=== PATIENT | male | born 1970 | race Caucasian/White ===

== ENCOUNTER 2018-10-05 20:24 | Emergency (ER) | payer OTHER ==
[2018-10-05 20:34] VITALS: BP 129/82; PULSE 85; TEMP 97.9; BMI 29.7
[2018-10-05 22:33] LABS: URINE APPEARANCE CLEAR; URINE BILIRUBIN NEGATIVE (NEGATIVE); URINE COLOR YELLOW; URINE GLUCOSE (UA) NEGATIVE (NEGATIVE); URINE KETONE NEGATIVE (NEGATIVE); URINE LEUK ESTERASE NEGATIVE (NEGATIVE); URINE NITRITE NEGATIVE (NEGATIVE); URINE PROTEIN NEGATIVE (NEGATIVE); URINE UROBILINOGEN 0.2 mg/dL (0.2-1.0)
--- NOTE | 2018-10-05 22:34 | PDOC ---
History of Present Illness - General Chief Complaint: Urinary Problem Stated Complaint: PENILE PAIN Time Seen by Provider: 10/05/18 22:06 History Source: Patient - History of Present Illness Initial Comments: 10/05/18 23:01 48-year-old male Complaining of small bruise to the penial shaft patient reports some pulsating feeling when he urinates at the site of the Bruise. Denies dysuria, frequency urination, penile discharge,'s testicular pain.. Past History - Past Medical History Allergies/Adverse Reactions: Allergies Allergy/AdvReac Type Severity Reaction Status Date / Time No Known Allergies Allergy Verified 10/05/18 22:18 Home Medications: Ambulatory Orders NK [No Known Home Medication] 10/05/18 COPD: No - Suicide/Smoking/Psychosocial Hx Smoking History: Never smoked Review of Systems - Review of Systems Able to Perform ROS?: Yes Is the patient limited Syriac proficient: No : Yes: Other (penile pain) *Physical Exam - Vital Signs Last Vital Signs Temp Pulse Resp BP Pulse Ox 97.9 F 85 18 129/82 99 10/05/18 20:32 10/05/18 20:32 10/05/18 20:32 10/05/18 20:32 10/05/18 20:32 - Physical Exam General Appearance: Yes: Appropriately Dressed Male Genitalia: positive: normal genitalia, other (1 cmsmall hematoma noted at the anterior shaft of penis.No redness to the meatus noted). negative: testicular tenderness Integumentary: positive: Normal Color, Dry, Warm Neurologic: positive: Fully Oriented, Alert, Normal Mood/Affect *DC/Admit/Observation/Transfer Diagnosis at time of Disposition: Penis abrasion Qualifiers: Encounter type: initial encounter Qualified Code(s): S30.812A - Abrasion of penis, initial encounter - Discharge Dispostion Disposition: HOME - Referrals - Patient Instructions Printed Discharge Instructions: DI for Hematoma (Bruise) Additional Instructions: you may apply ice to the area follow up with your doctor as soon as possible. - Post Discharge Activity Forms/Work/School Notes: Back to Work
== END 2018-10-05 23:11 | disposition home or self-care (01) ==
LOC: JERFT 20:24
DX: S30.21XA Contusion of penis, initial encounter (principal); S30.812A Abrasion of penis, initial encounter; X58.XXXA Exposure to other specified factors, initial encounter; Y93.9 Activity, unspecified; Y92.89 Other specified places as the place of occurrence of the external cause; Y99.8 Other external cause status
CPT/HCPCS: 36415; 81003; 87086; 87491; 87591; 99281-25

== ENCOUNTER 2023-11-22 20:30 | Emergency (ER) | payer OTHER ==
[2023-11-22 20:46] VITALS: BP 146/86; PULSE 98; RESP 19; TEMP 99; BMI 29.4
[2023-11-22 21:55] LABS: EPI CELLS 5 /uL (0-25.1); HYALINE CASTS 0 /uL (0-3.1); URINE APPEARANCE CLEAR; URINE BACTERIA 1 /uL (0-1359); URINE BILIRUBIN NEGATIVE (NEGATIVE); URINE COLOR YELLOW; URINE GLUCOSE (UA) NEGATIVE (NEGATIVE); URINE KETONE TRACE (NEGATIVE); URINE LEUK ESTERASE NEGATIVE (NEGATIVE); URINE NITRITE NEGATIVE (NEGATIVE); URINE PROTEIN TRACE (NEGATIVE); URINE RBC 64 /uL (0-23.9); URINE WBC 7 /uL (0-25.8)
== END 2023-11-22 22:53 | disposition home or self-care (01) ==
LOC: JER 20:30
DX: R33.9 Retention of urine, unspecified (principal); R10.30 Lower abdominal pain, unspecified; R39.11 Hesitancy of micturition; R30.0 Dysuria; R50.9 Fever, unspecified
CPT/HCPCS: 81003; 87086; 99283-25